=== PATIENT | female | born 1985 | race Caucasian/White ===

== ENCOUNTER 2019-10-15 09:08 | Emergency (ER) | payer BC ==
--- NOTE | 2019-10-15 09:29 | ER Document Report ---
ED General - General Chief Complaint: Urinary Problem Stated Complaint: PAINFUL URINATION Time Seen by Provider: 10/15/19 09:13 - HPI Notes: Chief complaint: Dysuria and vaginal discharge HPI: Generally healthy 34-year-old 1 para 1 on no regular medications with no known allergies reporting normal menstrual period about 2 weeks ago now presents with 24-hour history of mild dysuria and perineal irritation with some white vaginal discharge. She denies fever, chills, nausea, vomiting, abdominal pain or back pain. Past Medical History - General Information source: Patient - Social History Smoking Status: Never Smoker Chew tobacco use (# tins/day): No Frequency of alcohol use: None Drug Abuse: None Family History: Reviewed & Not Pertinent Patient has suicidal ideation: No Patient has homicidal ideation: No Review of Systems - Review of Systems Notes: Constitutional: Negative for fever. HENT: Negative for sore throat. Eyes: Negative for visual changes. Cardiovascular: Negative for chest pain. Respiratory: Negative for shortness of breath. Gastrointestinal: Negative for abdominal pain, vomiting or diarrhea. Genitourinary: As per HPI. Musculoskeletal: Negative for back pain. Skin: Negative for rash. Neurological: Negative for headaches, weakness or numbness. 10 point ROS negative except as marked above and in HPI. Physical Exam - Vital signs Vitals: Temp Pulse Resp BP Pulse Ox 98.1 F 80 20 140/72 H 100 10/15/19 09:19 10/15/19 09:19 10/15/19 09:19 10/15/19 09:19 10/15/19 09:19 - Notes Notes: GENERAL: Female patient of approximately stated age appearing in no acute distress. SKIN: Good turgor no rashes. HEAD: Normocephalic atraumatic. EYES: PERRLA. EOMI. Conjunctivae and sclerae clear. NECK: Supple. No masses or thyromegaly. No adenopathy. Carotids 2+ without bruits. No JVD. BACK: Symmetrical without tenderness. CHEST: Respirations unlabored. Breath sounds clear and symmetrical. HEART: Regular rhythm. No murmur gallop or rub. ABDOMEN: Soft nontender without masses, organomegaly or rebound. Bowel sounds normally active. No bruits. Pelvic: Normal external genitalia and hair distribution. Moderate amount of caseous white vaginal discharge. Cervix parous without lesions. No tenderness or masses on bimanual. EXTREMITIES: Old surgical scars and near the right elbow. No edema. No calf tenderness. Cap refill less than 1.5 seconds. Dorsalis pedis and posterior tibial pulses 3+ and symmetrical. NEUROLOGICAL: Alert and oriented x3. Nonfocal. PSYCHIATRIC: Appropriate affect. Course - Re-evaluation Re-evalutation: 10/15/19 10:45 Urinalysis is unremarkable. test is negative. ISMAEL and wet prep showed presence of yeast with no trichomonads. Findings are consistent with a vaginal yeast infection. - Vital Signs Vital signs: Temp Pulse Resp BP Pulse Ox 98.1 F 80 20 140/72 H 100 10/15/19 09:19 10/15/19 09:19 10/15/19 09:19 10/15/19 09:19 10/15/19 09:19 Discharge - Discharge Clinical Impression: Monilial vaginitis Condition: Stable Disposition: HOME, SELF-CARE Additional Instructions: Vaginal Yeast Infection You have evidence of a yeast infection -- called "rachel." A vaginal yeast infection often causes itching and discharge. While not dangerous, it can be very unpleasant. A yeast infection often follows the use of powerful antibiotics. It is more likely to occur in diabetics. The treatment now is usually a single pill of Diflucan, but also an antifungal cream or suppository may be used for a few days. You do not need to avoid sexual intercourse. Recurrences are common. You can make a recurrence less likely by wearing cotton underwear and avoiding tight clothing. For mild recurrences, you can try [id number] creams or suppositories that are made specifically for yeast. If the symptoms do not resolve, you should follow up for re-examination. Sometimes treatment of the sexual partner is necessary if infections are recurrent. You will receive a prescription for Diflucan which is taken as a single dose orally and should rapidly clear the infection. You may also use [id number] 1/2% hydrocortisone cream externally applied to the genital area twice a day as needed for irritation. Follow-up with your primary care physician. Prescriptions: Fluconazole [Diflucan 100 Mg Tablet] 150 mg PO ONCE PRN 1 Days #1 tablet PRN Reason:
[2019-10-15 09:41] LABS: APPEARANCE,URINE CLEAR; BILIRUBIN,URINE NEGATIVE (NEGATIVE); COLOR,URINE YELLOW; GLUCOSE, URINE NEGATIVE (NEGATIVE); KETONES,URINE NEGATIVE (NEGATIVE); PROTEIN,URINE NEGATIVE (NEGATIVE); URINE SPECIFIC GRAVITY 1.005; UROBILINOGEN,URINE NEGATIVE mg/dL (<2.0)
[2019-10-15 10:41] LABS: BACTERIA (WET MOUNT) 3+ BACTERIA SEEN; EPITHELIALS (WET MOUNT) 3+ EPITHELIALS SEEN; T.VAGINALIS (WET MOUNT) NO TRICHOMONAS SEEN; WBCS (WET MOUNT) 2+ WBCS SEEN; YEAST (WET MOUNT) YEAST SEEN
[2019-10-15 10:59] VITALS: BP 110/68
[2019-10-15 12:03] LABS: CHLAM PCR NOT DETECTED (NOT DETECT)
== END 2019-10-15 10:59 | disposition home or self-care (01) ==
LOC: ER 09:08
DX: B37.3 Candidiasis of vulva and vagina (principal)
CPT/HCPCS: 81001; 81025; 87210; 87491; 87591; 99283